=== PATIENT | male | born 1980 | race Caucasian/White ===

== ENCOUNTER 2019-07-23 18:32 | Emergency (ER) | payer SELFPAY ==
[~2019-07-23] VITALS: Ht 182.8 cm; Wt 127.0 kg
[~2019-07-23 18:32] MED LIST: CLINDAMYCIN HC300 MG PO; IBUPROFEN25 GM PO; NKHM; VICODIN 5/500 505 MG PO
[2019-07-23 19:11] LABS: BASO % 0.5 % (0.0-1.0); EOS # 0.1 10*3/uL (0.0-0.4); EOS % 1.1 % (1.0-4.0); HEMOGLOBIN 15.4 g/dl (14.0-18.0); LYMPH # 2.2 10*3/uL (1.3-4.4); LYMPH % 27.3 % (27.0-41.0); MEAN CELL VOLUME 97.3 fl (80.0-94.0); MEAN CORPUSCULAR HGB 32.6 pg (27.0-31.0); MEAN CORPUSCULAR HGB CONC 33.5 g/dl (33.0-37.0); MEAN PLATELET VOLUME 10.9 fl (9.6-12.3); MONO # 0.7 10*3/uL (0.1-1.0); MONO % 8.9 % (3.0-9.0); NEUT % 61.7 % (47.0-73.0); PLATELET COUNT AUTOMATED 241 10*3/uL (130-400); RED BLOOD COUNT 4.73 10*6/uL (4.50-5.90); RED CELL DISTRI WIDTH 12.3 % (0-14.5); WHITE BLOOD COUNT 8.2 10*3/uL (4.8-10.8)
[2019-07-23 19:27] LABS: ALBUMIN 4.3 gm/dl (3.1-4.5); ALKALINE PHOSPHATASE 99 U/L (45-117); BUN 9 mg/dl (7-24); CHLORIDE 107 mmol/L (98-107); CREATININE 1.08 mg/dL (0.70-1.30); POTASSIUM 3.4 mmol/L (3.5-5.1); SGOT/AST 10 IU/L (3-35); SGPT/ALT 22 U/L (12-78); SODIUM 141 mmol/L (136-145); TOTAL PROTEIN 7.7 gm/dL (6.4-8.2)
[2019-07-23 21:37] LABS: BILIRUBIN NEGATIVE (NEGATIVE); BLOOD NEGATIVE (NEGATIVE); CLARITY CLEAR (CLEAR); COLOR YELLOW (YELLOW); GLUCOSE NEGATIVE (NEGATIVE); KETONE NEGATIVE (NEGATIVE); LEUKO ESTERASE NEGATIVE (NEGATIVE); NITRITE NEGATIVE (NEGATIVE); PH 6.5 (5.0-9.0); UROBILINOGEN 0.2 E.U./dl (0.2-1.0)
[2019-07-23] MEDS ORDERED: LEVOFLOXACIN500 MG PO (21:41)
[2019-07-23 21:44] LABS: BACTERIA 1+
== END 2019-07-23 22:00 | disposition home or self-care (01) ==
LOC: ED 18:32
PROVIDERS: Physician Assistant
DX: N50.89 Other specified disorders of the male genital organs (principal)

== ENCOUNTER → 2019-10-11 | Outpatient (CLI) | payer OTHER ==
[~2019-10-11] MED LIST changes: +LEVOFLOXACIN500 MG PO
[2019-10-11 16:02] LABS: LDH 151 U/L (87-241)
[2019-10-11 16:03] LABS: BETA-HCG, TUMOR MARKER < 1.0 mIU/mL (<1)
== END | disposition home or self-care (01) ==
LOC: US 13:00 → LAB 13:12
PROVIDERS: Nurse Practitioner Family
DX: N43.2 Other hydrocele (principal); R59.9 Enlarged lymph nodes, unspecified

== ENCOUNTER 2022-08-16 08:25 | Inpatient (IN) | payer OTHER ==
[~2022-08-16] VITALS: Ht 182.9 cm; Wt 123.4 kg
[2022-08-16 09:08] VITALS: BP 132/85
[2022-08-16 10:06] LABS: BASO # 0.1 10*3/uL (0.0-0.1); BASO % 0.4 % (0.0-1.0); EOS % 0.3 % (1.0-4.0); HEMATOCRIT 45.7 % (42.0-52.0); LYMPH # 1.4 10*3/uL (1.3-4.4); LYMPH % 9.8 % (27.0-41.0); MEAN CELL VOLUME 94.8 fl (80.0-94.0); MEAN CORPUSCULAR HGB 32.4 pg (27.0-31.0); MEAN CORPUSCULAR HGB CONC 34.1 g/dl (33.0-37.0); MEAN PLATELET VOLUME 10.3 fl (9.6-12.3); MONO # 1.1 10*3/uL (0.1-1.0); MONO % 7.9 % (3.0-9.0); NEUT # 11.3 10*3/uL (2.3-7.9); NEUT % 81.2 % (47.0-73.0); PLATELET COUNT AUTOMATED 211 10*3/uL (130-400); RED BLOOD COUNT 4.82 10*6/uL (4.50-5.90); RED CELL DISTRI WIDTH 12.2 % (0-14.5); WHITE BLOOD COUNT 13.9 10*3/uL (4.8-10.8)
[2022-08-16 10:19] LABS: ACT PARTIAL THROMBO TIME 32.3 SECONDS (20.0-32.1)
[2022-08-16 10:23] LABS: ALKALINE PHOSPHATASE 86 U/L (45-117); BUN 17 mg/dl (7-24); CHLORIDE 106 mmol/L (98-107); CREATININE 0.73 mg/dL (0.70-1.30); POTASSIUM 3.7 mmol/L (3.5-5.1); SGOT/AST 10 IU/L (3-35); SGPT/ALT 26 U/L (12-78); SODIUM 138 mmol/L (136-145); TOTAL PROTEIN 7.5 gm/dL (6.4-8.2)
[2022-08-16 11:27] LABS: BILIRUBIN Negative (Negative); BLOOD Negative (Negative); CLARITY Clear (Clear); COLOR Dark Yellow (Yellow); GLUCOSE Negative (Negative); KETONE Negative (Negative); LEUKO ESTERASE Negative (Negative); NITRITE Negative (Negative); UROBILINOGEN 0.2 E.U./dl (0.0-1.0)
[2022-08-16 11:34] LABS: BACTERIA TRACE; EPITHELIAL CELLS 0-2; WBC 0-2 wbc/hpf (0-5)
[2022-08-16] MEDS ORDERED: LISINOPRIL-HCT1 EACH PO (13:35)
[2022-08-16] MEDS ORDERED: AMLODIPINE BESY10 MG PO (13:35)
[2022-08-16 16:02] VITALS: BP 142/78
[2022-08-16 16:10] VITALS: BP 153/81
[2022-08-16 20:00] VITALS: BP 135/91
[2022-08-17] VITALS (8 sets, daily range): BP systolic 114–163; BP diastolic 67–95
[2022-08-17 06:43] LABS: BASO # 0.1 10*3/uL (0.0-0.1); BASO % 0.5 % (0.0-1.0); EOS # 0.1 10*3/uL (0.0-0.4); EOS % 1.2 % (1.0-4.0); HEMATOCRIT 42.6 % (42.0-52.0); LYMPH % 17.8 % (27.0-41.0); MEAN CELL VOLUME 95.5 fl (80.0-94.0); MEAN CORPUSCULAR HGB 32.7 pg (27.0-31.0); MEAN CORPUSCULAR HGB CONC 34.3 g/dl (33.0-37.0); MEAN PLATELET VOLUME 10.6 fl (9.6-12.3); MONO # 1.1 10*3/uL (0.1-1.0); MONO % 9.8 % (3.0-9.0); NEUT # 7.8 10*3/uL (2.3-7.9); PLATELET COUNT AUTOMATED 219 10*3/uL (130-400); RED BLOOD COUNT 4.46 10*6/uL (4.50-5.90); RED CELL DISTRI WIDTH 12.3 % (0-14.5); WHITE BLOOD COUNT 11.1 10*3/uL (4.8-10.8)
[2022-08-17 06:52] LABS: BUN 9 mg/dl (7-24); CHLORIDE 110 mmol/L (98-107); POTASSIUM 3.8 mmol/L (3.5-5.1); SGPT/ALT 23 U/L (12-78); SODIUM 142 mmol/L (136-145)
[2022-08-17 06:55] LABS: ALKALINE PHOSPHATASE 71 U/L (45-117); CHOLESTEROL 95 mg/dL (<200); CREATININE 0.69 mg/dL (0.70-1.30); LDL CHOLESTEROL 38 mg/dL (9-159); SGOT/AST 9 IU/L (3-35); TRIGLYCERIDES 60 mg/dl (<150)
[2022-08-17 07:01] LABS: FREE T4 1.54 ng/dl (0.76-1.46)
[2022-08-17 08:37] LABS: VITAMIN D, 25-HYDROXY 23.1 ng/mL (30-100)
[2022-08-18] VITALS: BP 130/70
[2022-08-18 08:00] VITALS: BP 135/85
[2022-08-18 12:00] VITALS: BP 146/91
[2022-08-18 16:00] VITALS: BP 146/81
[2022-08-18 20:00] VITALS: BP 146/86
[2022-08-19] VITALS: BP 157/91
[2022-08-19 08:00] VITALS: BP 151/98
[2022-08-19 12:00] VITALS: BP 157/86
[2022-08-19 16:00] VITALS: BP 140/98
[2022-08-19 20:00] VITALS: BP 128/88
[2022-08-20] VITALS: BP 118/61
[2022-08-20 08:00] VITALS: BP 148/97
[2022-08-20] MEDS ORDERED: CARVEDILOL6.25 MG PO (11:09)
[2022-08-20] MEDS ORDERED: SEPTDS PO (11:09)
== END 2022-08-20 12:21 | disposition home or self-care (01) | DRG 710 ==
LOC: ED 08:25 → EDHOLD 13:45 → 4E 13:45
PROVIDERS: Family Medicine; Registered Nurse; ADMIT Internal Medicine; ATTEND Internal Medicine
PROC: 0D9P0ZZ Drainage of Rectum, Open Approach (ICD-10-PCS; principal; 2022-08-17)
DX: A41.02 Sepsis due to Methicillin resistant Staphylococcus aureus (principal); K61.1 Rectal abscess; F17.210 Nicotine dependence, cigarettes, uncomplicated; I10 Essential (primary) hypertension; F12.90 Cannabis use, unspecified, uncomplicated; N50.9 Disorder of male genital organs, unspecified; F43.21 Adjustment disorder with depressed mood; Z89.421 Acquired absence of other right toe(s); Z83.3 Family history of diabetes mellitus

== ENCOUNTER → 2022-08-26 | Outpatient (CLI) | payer OTHER ==
[~2022-08-26] MED LIST changes: +AMLODIPINE BESY10 MG PO; +CARVEDILOL6.25 MG PO; +LISINOPRIL-HCT1 EACH PO; +SEPTDS PO
== END | disposition home or self-care (01) ==
LOC: WOUNDCARE 01:13
PROVIDERS: ATTEND Nurse Practitioner Family
DX: L02.215 Cutaneous abscess of perineum (principal); L73.2 Hidradenitis suppurativa; I10 Essential (primary) hypertension; F12.90 Cannabis use, unspecified, uncomplicated; F17.210 Nicotine dependence, cigarettes, uncomplicated; F17.200 Nicotine dependence, unspecified, uncomplicated; Z71.6 Tobacco abuse counseling

== ENCOUNTER → 2022-09-01 | Outpatient (CLI) | payer OTHER | END | disposition home or self-care (01) | LOC: WOUNDCARE 02:11 | PROVIDERS: ATTEND Nurse Practitioner Family | DX: L02.215 Cutaneous abscess of perineum (principal); L73.2 Hidradenitis suppurativa; I10 Essential (primary) hypertension; F17.210 Nicotine dependence, cigarettes, uncomplicated; Z71.6 Tobacco abuse counseling ==

== ENCOUNTER → 2022-09-08 | Outpatient (CLI) | payer OTHER | END | disposition home or self-care (01) | LOC: WOUNDCARE 04:33 | PROVIDERS: ATTEND Nurse Practitioner Family | DX: L02.215 Cutaneous abscess of perineum (principal); L73.2 Hidradenitis suppurativa; I10 Essential (primary) hypertension; F17.210 Nicotine dependence, cigarettes, uncomplicated; Z71.6 Tobacco abuse counseling ==

== ENCOUNTER 2025-08-18 00:08 | Emergency (ER) | payer MEDICAID ==
[~2025-08-18] VITALS: Ht 180.3 cm; Wt 81.6 kg
[2025-08-18 00:44] LABS: BASO # 0.1 10*3/uL (0.0-0.1); BASO % 0.4 % (0.0-1.0); EOS # 0.0 10*3/uL (0.0-0.4); EOS % 0.1 % (1.0-4.0); MEAN CELL VOLUME 96.6 fl (80.0-94.0); MEAN CORPUSCULAR HGB 32.7 pg (27.0-31.0); MEAN PLATELET VOLUME 9.9 fl (9.6-12.3); MONO # 1.1 10*3/uL (0.1-1.0); MONO % 6.6 % (3.0-9.0); NEUT # 12.4 10*3/uL (2.3-7.9); NEUT % 77.0 % (47.0-73.0); NUCLEATED RED BLOOD CELL 0.0 % (0.0-0.0); NUCLEATED RED BLOOD CELL 0.0 10*3/uL (0.0-0.0); PLATELET COUNT AUTOMATED 225 10*3/uL (130-400); RED CELL DISTRI WIDTH 12.7 % (0-14.5)
[2025-08-18 01:11] LABS: BUN 8 mg/dl (9-23); CPK 163 U/L (34-171); SGPT/ALT 18 U/L (5-49)
[2025-08-18 01:16] LABS: ETHYL ALCOHOL < 3.0 mg/dl (<3)
[2025-08-18 02:01] LABS: BILIRUBIN Negative (Negative); BLOOD Negative (Negative); CLARITY Clear (Clear); COLOR Yellow (Yellow); KETONE Trace (Negative); LEUKO ESTERASE 1+ (Negative); NITRITE Negative (Negative); PH 6.5 (4.5-8.0); SPECIFIC GRAVITY 1.015 (1.001-1.030); UROBILINOGEN 1.0 E.U./dl (0.0-1.0)
[2025-08-18 02:08] LABS: URINE AMPHETAMINES Negative (1000ng/ml); URINE BARBITURATES Negative (200ng/ml); URINE BENZODIAZEPINES Negative (200ng/ml); URINE CANNABINOIDS (THC) Positive (50ng/ml); URINE COCAINE Negative (300ng/ml); URINE METHADONE Negative (300ng/ml); URINE OPIATES Negative (300ng/ml); URINE PHENCYCLIDINE Negative (25ng/ml)
[2025-08-18 02:25] LABS: WBC 16-20 wbc/hpf (0-5)
[2025-08-18] MEDS ORDERED: Ciprofloxacin Hydrochloride 500 MG TAB PO ONE (03:15)
== END 2025-08-18 18:12 ==
LOC: ED 00:08
PROVIDERS: Emergency Medicine
DX: N39.0 Urinary tract infection, site not specified (principal); F12.90 Cannabis use, unspecified, uncomplicated; Z98.890 Other specified postprocedural states; Z90.89 Acquired absence of other organs